=== PATIENT | male | born 1945 | race Caucasian/White ===

== ENCOUNTER 2020-01-05 10:46 | Emergency (ER) | payer MEDICARE ==
--- NOTE | 2020-01-05 11:44 | ER Document Report ---
ED Medical Screen (RME) - General Chief Complaint: Arm Problem Stated Complaint: ELBOW PAIN Time Seen by Provider: 01/05/20 11:39 Mode of Arrival: Ambulatory Information source: Patient Notes: 74-year-old male presented to ED for swelling to the right elbow that started last week. He states he does not remember injuring it but it did get very swollen and then his lower arm has been swollen and ecchymotic. We will get x- ray of the elbow and Doppler of the arm and he will be seen by another provider. He does have full range of motion to the elbow but with pain. He is not on blood thinners does not have any history of blood clots and is on high blood pressure medicine I have greeted and performed a rapid initial assessment of this patient. A comprehensive ED assessment and evaluation of the patient, analysis of test results and completion of medical decision making process will be conducted by an additional ED providers. Physical Exam - Vital signs Vitals: Temp Pulse Resp BP Pulse Ox 98.0 F 62 18 167/55 H 97 01/05/20 11:07 01/05/20 11:07 01/05/20 11:07 01/05/20 11:07 01/05/20 11:07 Course - Vital Signs Vital signs: Temp Pulse Resp BP Pulse Ox 98.0 F 62 18 167/55 H 97 01/05/20 11:07 01/05/20 11:07 01/05/20 11:07 01/05/20 11:07 01/05/20 11:07
--- NOTE | 2020-01-05 13:12 | RADIOLOGY REPORT (SQ) ---
EXAM DESCRIPTION: ELBOW RIGHT OVER 2 VIEWS IMAGES COMPLETED DATE/TIME: 01/05/2020 12:40 pm REASON FOR STUDY: Pain swelling COMPARISON: None. NUMBER OF VIEWS: Four views. TECHNIQUE: AP, lateral, and both oblique radiographic images acquired of the right elbow. LIMITATIONS: None. FINDINGS: MINERALIZATION: Normal. BONES: No acute fracture or dislocation. No worrisome bone lesions. JOINT: No effusion. SOFT TISSUES: No soft tissue swelling. No foreign body. OTHER: No other significant finding. IMPRESSION: NEGATIVE STUDY OF THE RIGHT ELBOW. NO RADIOGRAPHIC EVIDENCE OF ACUTE INJURY. TECHNICAL DOCUMENTATION: JOB ID: [id number] 2010 [employer]- All Rights Reserved Reading location - IP/workstation name: [email or web address]
--- NOTE | 2020-01-05 15:33 | RADIOLOGY REPORT (SQ) ---
EXAM DESCRIPTION: VENOUS UNILATERAL UPPER IMAGES COMPLETED DATE/TIME: 01/05/2020 3:20 pm REASON FOR STUDY: Right arm swelling COMPARISON: None. TECHNIQUE: Dynamic and static boyce scale and color images acquired of the right arm venous system. S elected spectral images acquired with additional compression and augmentation maneuvers. The contrala teral subclavian vein and internal jugular vein were also imaged. Images stored on PACS. LIMITATIONS: None. FINDINGS: INTERNAL JUGULAR VEIN: Normal phasicity, compression, augmentation. No visualized echogeni c material on boyce scale. No defects on color images. Comparison opposite side normal. SUBCLAVIAN VEIN: Normal compression, augmentation. No visualized echogenic material on boyce scale. No defects on color images. AXILLARY VEIN: Normal compression, augmentation. No visualized echogenic material on boyce scale. No d efects on color images. BRACHIAL VEIN: Normal compression, augmentation. No visualized echogenic material on boyce scale. No d efects on color images. BASILIC VEIN: Normal compression, augmentation. No visualized echogenic material on boyce scale. No de fects on color images. CEPHALIC VEIN: Normal compression, augmentation. No visualized echogenic material on boyce scale. No d efects on color images. OTHER: No other significant finding. IMPRESSION: 1. NO EVIDENCE DVT OR SVT RIGHT ARM. TECHNICAL DOCUMENTATION: JOB ID: [id number] 2010 [employer]- All Rights Reserved Reading location - IP/workstation name: [email or web address]
--- NOTE | 2020-01-05 16:27 | ER Document Report ---
ED Extremity Problem, Upper - General Chief Complaint: Elbow Injury Stated Complaint: ELBOW PAIN Time Seen by Provider: 01/05/20 11:39 Mode of Arrival: Ambulatory Notes: 74-year-old male comes in for some elbow swelling and bruising on his forearm. The patient was kayaking about a week ago with his son and was sore afterwards. He then noticed he was leaning on a dock talking to somebody fishing and that his arm was black and blue. Is also noticed his elbow has been swelling at the tip in the back. He has had this before where he gets "water on his elbow "denies any fever or chills. Denies any other falls or trauma denies chest pain or shortness of breath. Denies any bleeding of his gums nose or eyes. Denies any black bloody or tarry stools. Rubs the discomfort on his elbow as mild just a mild ache. - Related Data Allergies/Adverse Reactions: No Known Allergies Allergy (Unverified 01/05/20 16:23) Home Medications: high BP medication, cholesterol medication Past Medical History - General Information source: Patient - Social History Smoking Status: Former Smoker Chew tobacco use (# tins/day): No Frequency of alcohol use: Occasional Drug Abuse: None Family History: None - Past Medical History Cardiac Medical History: Reports: Hx Hypercholesterolemia, Hx Hypertension Past Surgical History: Reports: Hx Cardiac Catheterization - 1 stent placed, Hx Cardiac Surgery Review of Systems - Review of Systems Constitutional: denies: Chills, Fever EENT: No symptoms reported Cardiovascular: No symptoms reported Respiratory: No symptoms reported Gastrointestinal: No symptoms reported Musculoskeletal: Joint pain, Other - Bruising to the forearm Skin: Change in color Hematologic/Lymphatic: denies: Easy bruising Neurological/Psychological: denies: Headaches -: Yes All other systems reviewed and negative Physical Exam - Vital signs Vitals: Temp Pulse Resp BP Pulse Ox 98.0 F 62 18 167/55 H 97 01/05/20 11:07 01/05/20 11:07 01/05/20 11:07 01/05/20 11:07 01/05/20 11:07 - Notes Notes: GENERAL_APPEARANCE: well_nourished, alert, cooperative, no_acute_distress, no_obvious_discomfort. VITALS: reviewed, see vital signs table. HEAD: no_swelling\\tenderness on the head. EYES: Clear anicteric, conjunctiva_clear. NOSE: no_nasal_discharge. MOUTH: (-)decreased moisture. THROAT: no_tonsilar_inflammation, no_airway_obstruction. no_lymphadenopathy NECK: supple, no_neck_tenderness, (-)thyromegaly. BACK: no_back_tenderness. CHEST_WALL: no_chest_tenderness. EXTREMITIES: Right forearm has some ecchymosis near the wrist extending to the mid forearm no redness no heat there., The olecranon process on the right has a small effusion olecranon bursa. Redness or heat of this area is noted no significant tenderness. SKIN: warm, dry, good_color, no_rash. MENTAL_STATUS: speech_clear, oriented_X_3, normal_affect, responds_appropriately to questions. Course - Re-evaluation Re-evalutation: 01/05/20 16:25 74-year-old male presents to the emergency department complaining of olecranon bursitis. Patient has a small olecranon bursa fluid accumulation. No redness no heat no induration. The patient also had some bruising to his right forearm. He stated he went kayaking with his son a week ago and was real sore afterwards. He then a few days later was leaning on the dock fishing peer and noticed the bruising. Likely the activity from the kayaking is what caused the bleeding. Patient is on no anticoagulants. He has no other bleeding of his gums eyes or GI tract. As far as the olecranon bursa being mildly swollen he states he gets this from time to time he will use NSAIDs as needed. I will not drain this at this time it is not large enough in my opinion the ecchymosis is getting better he states it is already receded. Again I feel this is from the kayaking venous Doppler showed no DVT. X-ray showed no acute abnormalities. Has no history of alcoholism or liver disease and is on no anticoagulants. - Vital Signs Vital signs: Temp Pulse Resp BP Pulse Ox 98.0 F 62 18 167/55 H 97 01/05/20 11:07 01/05/20 11:07 01/05/20 11:07 01/05/20 11:07 01/05/20 11:07 - Diagnostic Test Radiology reviewed: Reports reviewed Radiology results interpreted by me: 01/05/20 16:25 Elbow X-Ray 01/05/20 11:40 IMPRESSION: NEGATIVE STUDY OF THE RIGHT ELBOW. NO RADIOGRAPHIC EVIDENCE OF ACUTE INJURY. Venous Doppler Study 01/05/20 15:20 IMPRESSION: 1. NO EVIDENCE DVT OR SVT RIGHT ARM. Discharge - Discharge Clinical Impression: Olecranon bursitis of right elbow Traumatic ecchymosis of right forearm Qualifiers: Encounter type: initial encounter Qualified Code(s): S50.11XA - Contusion of right forearm, initial encounter Condition: Good Disposition: HOME, SELF-CARE Instructions: Olecranon Bursitis ([facility]) Additional Instructions: Take [id number] anti-inflammatories as needed
[2020-01-05 16:49] VITALS: BP 174/74
== END 2020-01-05 17:00 | disposition home or self-care (01) ==
LOC: ER 10:46
DX: S50.11XA Contusion of right forearm, initial encounter (principal); M70.21 Olecranon bursitis, right elbow; X58.XXXA Exposure to other specified factors, initial encounter; E78.00 Pure hypercholesterolemia, unspecified; I10 Essential (primary) hypertension
CPT/HCPCS: 93971; 99284